=== PATIENT | female | born 1980 | race Caucasian/White ===

== ENCOUNTER 2016-08-24 12:29 | Emergency (ER) | payer MEDICARE ==
[~2016-08-24] VITALS: Ht 162.6 cm; Wt 92.1 kg
[2016-08-24] MEDS ORDERED: FAMO40TA3 PO (12:51)
[2016-08-24] MEDS ORDERED: CLOB05OI EXT (13:21)
[2016-08-24 13:29] VITALS: BP 127/82
== END 2016-08-24 13:36 | disposition home or self-care (01) ==
LOC: M ED 13:19
DX: L30.9 Dermatitis, unspecified (principal); Z76.0 Encounter for issue of repeat prescription; F17.200 Nicotine dependence, unspecified, uncomplicated; M54.9 Dorsalgia, unspecified; F41.9 Anxiety disorder, unspecified; Z86.14 Personal history of Methicillin resistant Staphylococcus aureus infection; Z79.899 Other long term (current) drug therapy; Z88.1 Allergy status to other antibiotic agents

== ENCOUNTER → 2016-09-10 | Outpatient (CLI) | payer MEDICAID ==
[~2016-09-10] MED LIST: CLOB05OI EXT; FAMO40TA3 PO
[2016-09-10 13:01] LABS: BASO % 0.7 % (0.0-1.0); EOS # 0.3 K/mm3 (0.0-0.50); EOS % 4.2 % (0.0-3.0); LYMPH # 2.9 K/mm3 (1.5-4.5); LYMPH % 34.3 % (24.0-44.0); MEAN CORPUSCULAR HEMOGLOBIN 32.2 pg (27.0-33.0); MEAN CORPUSCULAR HGB CONC 35.2 g/dl (32.0-36.5); MEAN CORPUSCULAR VOLUME 91.6 fl (80.0-96.0); MONO # 0.5 K/mm3 (0.0-0.8); MONO % 5.5 % (0.0-5.0); NEUTROPHILS # 4.4 K/mm3 (1.8-7.7); NEUTROPHILS % 53.9 % (36.0-66.0); RED CELL DISTRIBUTION WIDTH 12.7 % (11.5-14.5); WHITE BLOOD COUNT 8.2 K/mm3 (4.0-10.0)
[2016-09-10 13:20] LABS: ALBUMIN 3.9 GM/DL (3.2-5.2); ALKALINE PHOSPHATASE 92 U/L (45-117); ALT/SGPT 53 U/L (12-78); ANION GAP 9 MEQ/L (8-16); AST/SGOT 22 U/L (15-37); BILIRUBIN,TOTAL 0.3 MG/DL (0.2-1.0); BLOOD UREA NITROGEN 15 MG/DL (7-18); CARBON DIOXIDE LEVEL 27 MEQ/L (21-32); CHLORIDE LEVEL 107 MEQ/L (98-107); CHOLESTEROL LEVEL 240 MG/DL (<200); CREATININE FOR GFR 0.69 MG/DL (0.55-1.02); GLOMERULAR FILTRATION RATE > 60.0 (>60); GLUCOSE, FASTING 117 MG/DL (70-105); POTASSIUM SERUM 4.1 MEQ/L (3.5-5.1); SODIUM LEVEL 143 MEQ/L (136-145); TOTAL PROTEIN 6.9 GM/DL (6.4-8.2); TRIGLYCERIDES LEVEL 193 MG/DL (<150)
[2016-09-12 00:06] LABS: Lyme Disease IgG/IgM Antibodie <0.91 ISR (0.00-0.90); Lyme Disease IgM Ab Quantitati <0.80 index (0.00-0.79); SJOGREN'S ANTI SS-A <0.2 AI (0.0-0.9); SJOGREN'S ANTI SS-B <0.2 AI (0.0-0.9)
[2016-09-13 11:40] LABS: ALBUMIN 4.21 GM/DL (3.29-5.55); GAMMA GLOBULIN % 11.6 % (11.1-18.8)
== END ==
LOC: M LAB 11:28
PROVIDERS: ATTEND Physician Assistant Medical
DX: E78.2 Mixed hyperlipidemia (principal); E55.9 Vitamin D deficiency, unspecified; F41.1 Generalized anxiety disorder; M54.5 Low back pain

== ENCOUNTER 2016-11-03 16:07 | Emergency (ER) | payer MEDICARE, MEDICAID ==
[~2016-11-03] VITALS: Ht 162.6 cm; Wt 88.6 kg
[2016-11-03] MEDS ORDERED: LIPI20TA PO (16:15)
[2016-11-03] MEDS ORDERED: LEXA1TAB2 PO (16:15)
[2016-11-03] MEDS ORDERED: MOBI15TA PO (16:15)
[2016-11-03] MEDS ORDERED: VITA100067 PO (16:15)
[2016-11-03] MEDS ORDERED: ACET30TAB PO (17:21)
[2016-11-03 17:38] VITALS: BP 135/69
== END 2016-11-03 17:40 | disposition home or self-care (01) ==
LOC: M ED 16:07
DX: M25.50 Pain in unspecified joint (principal); M54.9 Dorsalgia, unspecified; F99 Mental disorder, not otherwise specified; F17.210 Nicotine dependence, cigarettes, uncomplicated; Z88.1 Allergy status to other antibiotic agents; Z88.2 Allergy status to sulfonamides; Z79.899 Other long term (current) drug therapy

== ENCOUNTER → 2016-11-25 | Outpatient (CLI) | payer MEDICARE, MEDICAID ==
[~2016-11-25] MED LIST changes: +ACET30TAB PO; +LEXA1TAB2 PO; +LIPI20TA PO; +MOBI15TA PO; +VITA100067 PO
[2016-11-25 12:02] LABS: MEAN CORPUSCULAR HEMOGLOBIN 32.1 pg (27.0-33.0); MEAN CORPUSCULAR VOLUME 94.1 fl (80.0-96.0); WHITE BLOOD COUNT 8.2 K/mm3 (4.0-10.0)
[2016-11-25 12:03] LABS: BASO # 0.1 K/mm3 (0.0-0.2); BASO % 0.7 % (0.0-1.0); EOS % 5.9 % (0.0-3.0); LYMPH % 32.6 % (24.0-44.0); MEAN CORPUSCULAR HGB CONC 34.2 g/dl (32.0-36.5); MONO % 4.6 % (0.0-5.0); NEUTROPHILS % 54.8 % (36.0-66.0); RED CELL DISTRIBUTION WIDTH 12.7 % (11.5-14.5)
[2016-11-25 12:04] LABS: EOS # 0.5 K/mm3 (0.0-0.50); LYMPH # 2.7 K/mm3 (1.5-4.5); MONO # 0.4 K/mm3 (0.0-0.8); NEUTROPHILS # 4.5 K/mm3 (1.8-7.7)
[2016-11-25 13:16] LABS: ALBUMIN 3.6 GM/DL (3.2-5.2); ALBUMIN/GLOBULIN RATIO 1.29 (1.00-1.93); ALKALINE PHOSPHATASE 93 U/L (45-117); ALT/SGPT 34 U/L (12-78); ANION GAP 8 MEQ/L (8-16); AST/SGOT 15 U/L (15-37); BILIRUBIN,TOTAL 0.5 MG/DL (0.2-1.0); BLOOD UREA NITROGEN 11 MG/DL (7-18); CALCIUM LEVEL 8.4 MG/DL (8.5-10.1); CARBON DIOXIDE LEVEL 29 MEQ/L (21-32); CHLORIDE LEVEL 107 MEQ/L (98-107); CHOLESTEROL LEVEL 156 MG/DL (<200); CREATININE FOR GFR 0.56 MG/DL (0.55-1.02); GLOMERULAR FILTRATION RATE > 60.0 (>60); GLUCOSE, FASTING 123 MG/DL (70-105); POTASSIUM SERUM 4.5 MEQ/L (3.5-5.1); SODIUM LEVEL 144 MEQ/L (136-145); TOTAL PROTEIN 6.4 GM/DL (6.4-8.2); TRIGLYCERIDES LEVEL 207 MG/DL (<150)
== END ==
LOC: M LAB 09:52
PROVIDERS: ATTEND Physician Assistant Medical
DX: E78.2 Mixed hyperlipidemia (principal); R73.9 Hyperglycemia, unspecified; E55.9 Vitamin D deficiency, unspecified

== ENCOUNTER → 2016-12-02 | Outpatient (CLI) | payer MEDICARE, MEDICAID ==
--- NOTE | 2016-12-02 15:02 | REP ---
Clinical: Bilateral pain . Technique: AP, lateral and sunrise views of the right and left knee. Findings: The osseous structures and joint spaces are intact and normal. There is no evidence for acute fracture or dislocation. No joint effusion is appreciated. Surrounding soft tissues are unremarkable. No subcutaneous emphysema or radiodense foreign body. Impression: Normal examination. No overt osteoarthritic degenerative changes are appreciated. Signed by Peter Ballesteros MD 12/02/2016 02:53 P
--- NOTE | 2016-12-02 15:04 | REP ---
Clinical: Bilateral hand pain. Arthritis. Technique: AP, lateral, bilateral oblique views of the right and left hand. Findings: No acute fracture dislocation. Skeletal structures, joint spaces, and surrounding soft tissues are normal for age bilaterally. No overt osteoarthritic degenerative changes are appreciated. Impression: Normal age appropriate bilateral hand radiographs. No overt osteoarthritic degenerative changes. Signed by Peter Ballesteros MD 12/02/2016 02:55 P
== END ==
LOC: M LAB 14:07
PROVIDERS: ATTEND Physician Assistant Medical
DX: M13.80 Other specified arthritis, unspecified site (principal)

== ENCOUNTER → 2017-01-16 | Outpatient (REF) | payer MEDICARE, MEDICAID | LOC: M SFHCLERA 13:30 | PROVIDERS: ATTEND Physician Assistant | DX: J02.9 Acute pharyngitis, unspecified (principal) ==

== ENCOUNTER 2017-02-15 20:11 | Emergency (ER) | payer MEDICARE, MEDICAID ==
[~2017-02-15] VITALS: Ht 162.6 cm; Wt 91.8 kg
[2017-02-15] MEDS ORDERED: BUSP15TA47 PO (20:22)
[2017-02-15] MEDS ORDERED: VALI5TAB PO (22:18)
[2017-02-15] MEDS ORDERED: IBUP80TA PO (22:18)
[2017-02-15] MEDS ORDERED: diazePAM 5 MG TAB PO ONE (22:30)
[2017-02-15] MEDS ORDERED: KETOROLAC 60 MG/2 ML VIAL (J1885) IM ONE (22:30)
[2017-02-15 22:41] VITALS: BP 126/68
== END 2017-02-15 22:45 | disposition home or self-care (01) ==
LOC: M ED 20:11
DX: S29.012A Strain of muscle and tendon of back wall of thorax, initial encounter (principal); S16.1XXA Strain of muscle, fascia and tendon at neck level, initial encounter; X58.XXXA Exposure to other specified factors, initial encounter; Y92.89 Other specified places as the place of occurrence of the external cause; Y93.89 Activity, other specified; Y99.9 Unspecified external cause status
CPT/HCPCS: 96372; 99283; J1885

== ENCOUNTER 2017-02-22 19:38 | Emergency (ER) | payer MEDICARE, MEDICAID ==
[~2017-02-22] VITALS: Ht 162.6 cm; Wt 93.0 kg
[~2017-02-22 19:38] MED LIST changes: +BUSP15TA47 PO; +IBUP80TA PO; +VALI5TAB PO
[2017-02-22] MEDS ORDERED: KETOROLAC 60 MG/2 ML VIAL (J1885) IM ONE (21:45)
[2017-02-22] MEDS ORDERED: ADJU7MIS XX (22:26)
[2017-02-22 22:43] VITALS: BP 12/72
--- NOTE | 2017-02-23 08:02 | REP ---
Right knee five views half : There is no fracture or dislocation. Mineralization and joint spaces are normal. There are no calcifications or foreign bodies. Impression: Negative right knee . Signed by Franklyn Bell MD 02/23/2017 07:53 A
== END 2017-02-22 22:45 | disposition home or self-care (01) ==
LOC: M ED 19:38
DX: S80.01XA Contusion of right knee, initial encounter (principal); W19.XXXA Unspecified fall, initial encounter; Y92.098 Other place in other non-institutional residence as the place of occurrence of the external cause; Y93.89 Activity, other specified; Y99.8 Other external cause status; F41.9 Anxiety disorder, unspecified; F17.200 Nicotine dependence, unspecified, uncomplicated; Z79.899 Other long term (current) drug therapy; Z88.2 Allergy status to sulfonamides; Z88.1 Allergy status to other antibiotic agents
CPT/HCPCS: 73564; 96372; 99283; J1885

== ENCOUNTER 2017-06-02 18:30 | Emergency (ER) | payer MEDICARE, MEDICAID ==
[2017-06-02] MEDS: AMOXICILLIN 500 MG CAP PO (20:08)
== END 2017-06-02 20:26 | disposition home or self-care (01) ==
LOC: M ED 18:30
DX: K04.7 Periapical abscess without sinus (principal); K21.9 Gastro-esophageal reflux disease without esophagitis; F17.200 Nicotine dependence, unspecified, uncomplicated; Z88.1 Allergy status to other antibiotic agents; Z88.2 Allergy status to sulfonamides
CPT/HCPCS: 99283

== ENCOUNTER → 2017-09-01 | Outpatient (REF) | payer MEDICARE, MEDICAID ==
[2017-09-01 13:38] LABS: BASO # 0.1 10^3/uL (0.0-0.2); BASO % 0.6 % (0.0-1.0); EOS # 0.6 10^3/uL (0.0-0.50); EOS % 6.4 % (0.0-3.0); HEMATOCRIT 40.1 % (36.0-47.0); HEMOGLOBIN 13.3 g/dl (12.0-15.5); IMMATURE GRANULOCYTE % 0.3 % (0-3.0); LYMPH # 2.7 10^3/uL (1.5-4.5); LYMPH % 31.1 % (24.0-44.0); MEAN CORPUSCULAR HEMOGLOBIN 31.1 pg (27.0-33.0); MEAN CORPUSCULAR HGB CONC 33.2 g/dl (32.0-36.5); MEAN CORPUSCULAR VOLUME 93.9 fl (80.0-96.0); MONO # 0.5 10^3/uL (0.0-0.8); MONO % 6.1 % (0.0-5.0); NEUTROPHILS # 4.9 10^3/uL (1.8-7.7); NEUTROPHILS % 55.5 % (36.0-66.0); PLATELET COUNT, AUTOMATED 184 10^3/uL (150-450); RED BLOOD COUNT 4.27 10^6/uL (4.00-5.40); RED CELL DISTRIBUTION WIDTH 12.6 % (11.5-14.5); WHITE BLOOD COUNT 8.8 10^3/uL (4.0-10.0)
[2017-09-01 14:06] LABS: ALBUMIN 3.7 GM/DL (3.2-5.2); ALBUMIN/GLOBULIN RATIO 1.09 (1.00-1.93); ALKALINE PHOSPHATASE 98 U/L (45-117); ALT/SGPT 68 U/L (12-78); ANION GAP 8 MEQ/L (8-16); AST/SGOT 23 U/L (7-37); BILIRUBIN,TOTAL 0.3 MG/DL (0.2-1.0); BLOOD UREA NITROGEN 10 MG/DL (7-18); CALCIUM LEVEL 8.8 MG/DL (8.5-10.1); CARBON DIOXIDE LEVEL 28 MEQ/L (21-32); CHLORIDE LEVEL 106 MEQ/L (98-107); CHOLESTEROL LEVEL 226 MG/DL (<200); CHOLESTEROL RISK RATIO 6.457 (<5); CPK CREATINE PHOSPHOKINASE 28 U/L (26-192); CREATININE FOR GFR 0.65 MG/DL (0.55-1.30); GLOMERULAR FILTRATION RATE > 60.0 (>60); GLUCOSE, FASTING 151 MG/DL (70-100); HDL CHOLESTEROL 35 MG/DL (>40); LDL CHOLESTEROL 143.6 MG/DL (<100); NON-HDL-C 191 MG/DL; POTASSIUM SERUM 4.4 MEQ/L (3.5-5.1); SODIUM LEVEL 142 MEQ/L (136-145); TOTAL PROTEIN 7.1 GM/DL (6.4-8.2); TRIGLYCERIDES LEVEL 237 MG/DL (<150)
[2017-09-01 14:10] LABS: ESTIMATED AVERAGE GLUCOSE 174 MG/DL (60-110); HEMOGLOBIN A1c 7.7 %
== END ==
LOC: M SFHCPLAZ 09:44
DX: K21.9 Gastro-esophageal reflux disease without esophagitis (principal); E78.00 Pure hypercholesterolemia, unspecified; E66.9 Obesity, unspecified; Z68.35 Body mass index [BMI] 35.0-35.9, adult
CPT/HCPCS: 82550

== ENCOUNTER → 2017-11-29 | Outpatient (CLI) | payer MEDICARE, MEDICAID ==
[2017-11-29 09:28] LABS: CREATININE FOR GFR 0.68 MG/DL (0.55-1.30); GLOMERULAR FILTRATION RATE > 60.0 (>60)
[2017-11-29 09:28] LABS: BLOOD UREA NITROGEN 12 MG/DL (7-18)
== END ==
LOC: M LAB 07:41
DX: Z01.818 Encounter for other preprocedural examination (principal); M54.5 Low back pain; Z86.39 Personal history of other endocrine, nutritional and metabolic disease
CPT/HCPCS: 82565

== ENCOUNTER 2017-11-30 18:17 | Emergency (ER) | payer MEDICARE, MEDICAID ==
[2017-11-30 19:17] LABS: BASO # 0.1 10^3/uL (0.0-0.2); BASO % 0.6 % (0.0-1.0); EOS # 0.3 10^3/uL (0.0-0.50); HEMATOCRIT 41.9 % (36.0-47.0); HEMOGLOBIN 14.3 g/dl (12.0-15.5); IMMATURE GRANULOCYTE % 0.3 % (0-3.0); LYMPH # 3.2 10^3/uL (1.5-4.5); MEAN CORPUSCULAR HGB CONC 34.1 g/dl (32.0-36.5); MEAN CORPUSCULAR VOLUME 90.7 fl (80.0-96.0); MONO # 0.6 10^3/uL (0.0-0.8); MONO % 6.5 % (0.0-5.0); NEUTROPHILS # 4.8 10^3/uL (1.8-7.7); NEUTROPHILS % 53.6 % (36.0-66.0); PLATELET COUNT, AUTOMATED 203 10^3/uL (150-450); RED BLOOD COUNT 4.62 10^6/uL (4.00-5.40); RED CELL DISTRIBUTION WIDTH 11.9 % (11.5-14.5); WHITE BLOOD COUNT 8.9 10^3/uL (4.0-10.0)
[2017-11-30 19:22] LABS: KETONE, URINE AUTO RFX NEGATIVE (NEGATIVE); LEUKOCYTE ESTERASE UR AUTO RFX NEGATIVE (NEGATIVE); MUCUS, URINE RFX SMALL (NEGATIVE); NITRITE, URINE AUTO RFX NEGATIVE (NEGATIVE); RBC, URINE AUTO RFX 2 /HPF (0-3); SPECIFIC GRAVITY UR AUTO RFX 1.027 (1.002-1.035); SQUAM EPITHELIAL CELL UR AURFX 3 /HPF (0-6); WBC, URINE AUTO RFX 2 /HPF (0-3)
[2017-11-30] MEDS: METOCLOPRAMIDE INJ 10MG/2ML VIAL (J2765) IV ×2 (19:34)
[2017-11-30] MEDS: NS 1,000 ML IV ×2 (19:34)
[2017-11-30 19:35] LABS: ALBUMIN/GLOBULIN RATIO 1.18 (1.00-1.93); ALKALINE PHOSPHATASE 112 U/L (45-117); ALT/SGPT 52 U/L (12-78); AMYLASE 60 U/L (25-115); ANION GAP 6 MEQ/L (8-16); AST/SGOT 22 U/L (7-37); BILIRUBIN,DIRECT 0.1 MG/DL (0.0-0.2); BILIRUBIN,TOTAL 0.4 MG/DL (0.2-1.0); BLOOD UREA NITROGEN 13 MG/DL (7-18); CARBON DIOXIDE LEVEL 28 MEQ/L (21-32); CHLORIDE LEVEL 108 MEQ/L (98-107); CREATININE FOR GFR 0.72 MG/DL (0.55-1.30); GLOMERULAR FILTRATION RATE > 60.0 (>60); GLUCOSE, FASTING 116 MG/DL (70-100); LIPASE 260 U/L (73-393); SODIUM LEVEL 142 MEQ/L (136-145); TOTAL PROTEIN 7.4 GM/DL (6.4-8.2)
[2017-11-30 19:51] LABS: ESTIMATED AVERAGE GLUCOSE 154 MG/DL (60-110)
[2017-11-30] MEDS ORDERED: ISOVUE-370 76% 100ML VIAL (Q9967) As Ordered ×2 (21:41)
[2017-11-30] MEDS: ONDANSETRON 4MG/2ML VIAL (J2405) IV ×2 (22:25)
[2017-11-30] MEDS: DICYCLOMINE 10 MG CAP PO ×2 (23:29)
[2017-11-30] MEDS: ONDANSETRON 4 MG ORAL DISINTEGRATING TAB (Q0162 PER 1MG) PO ×2 (23:30)
== END 2017-11-30 23:40 | disposition home or self-care (01) ==
LOC: M ED 18:17
DX: R11.2 Nausea with vomiting, unspecified (principal); R19.7 Diarrhea, unspecified; E11.9 Type 2 diabetes mellitus without complications; K21.9 Gastro-esophageal reflux disease without esophagitis; M54.9 Dorsalgia, unspecified; F41.9 Anxiety disorder, unspecified; N83.299 Other ovarian cyst, unspecified side; Z87.891 Personal history of nicotine dependence; Z79.899 Other long term (current) drug therapy; Z88.1 Allergy status to other antibiotic agents; Z88.2 Allergy status to sulfonamides
CPT/HCPCS: J2405

== ENCOUNTER → 2017-12-02 | Outpatient (CLI) | payer MEDICARE, MEDICAID ==
[~2017-12-02] MED LIST changes: -ACET30TAB PO; -BUSP15TA47 PO; -CLOB05OI EXT; -FAMO40TA3 PO; -IBUP80TA PO; -LEXA1TAB2 PO; -LIPI20TA PO; -MOBI15TA PO; +PROHANCE 279.3MG/ML 15ML VIAL (A9576) As Ordered; +PROHANCE 279.3MG/ML 5ML VIAL (A9576) As Ordered; -VALI5TAB PO; -VITA100067 PO
== END ==
LOC: M RAD 17:15
DX: M54.5 Low back pain (principal); Z98.1 Arthrodesis status
CPT/HCPCS: A9576

== ENCOUNTER → 2017-12-23 | Outpatient (REF) | payer MEDICARE, MEDICAID ==
[2017-12-23 12:02] LABS: BASO % 0.4 % (0.0-1.0); EOS # 0.4 10^3/uL (0.0-0.50); EOS % 5.1 % (0.0-3.0); HEMATOCRIT 39.8 % (36.0-47.0); HEMOGLOBIN 13.3 g/dl (12.0-15.5); IMMATURE GRANULOCYTE % 0.3 % (0-3.0); LYMPH # 2.4 10^3/uL (1.5-4.5); LYMPH % 31.6 % (24.0-44.0); MEAN CORPUSCULAR HEMOGLOBIN 30.7 pg (27.0-33.0); MEAN CORPUSCULAR HGB CONC 33.4 g/dl (32.0-36.5); MEAN CORPUSCULAR VOLUME 91.9 fl (80.0-96.0); MONO # 0.5 10^3/uL (0.0-0.8); NEUTROPHILS # 4.3 10^3/uL (1.8-7.7); NEUTROPHILS % 55.6 % (36.0-66.0); PLATELET COUNT, AUTOMATED 207 10^3/uL (150-450); RED BLOOD COUNT 4.33 10^6/uL (4.00-5.40); RED CELL DISTRIBUTION WIDTH 12.2 % (11.5-14.5); WHITE BLOOD COUNT 7.7 10^3/uL (4.0-10.0)
[2017-12-23 12:14] LABS: INR 0.93; PROTHROMBIN TIME 12.6 SECONDS (12.1-14.4)
[2017-12-23 12:15] LABS: PARTIAL THROMBOPLASTIN TIME 29.7 SECONDS (25.4-37.6)
[2017-12-23 12:38] LABS: ESTIMATED AVERAGE GLUCOSE 163 MG/DL (60-110); HEMOGLOBIN A1c 7.3 %
[2017-12-23 13:10] LABS: MALB URINE SIEMENS 12.1 MG/L; MAU/CREAT RATIO 5.8 MCG/MG (0.0-30.0)
== END ==
LOC: M SFHCPLAZ 09:27
DX: K06.8 Other specified disorders of gingiva and edentulous alveolar ridge (principal); E11.9 Type 2 diabetes mellitus without complications; F41.9 Anxiety disorder, unspecified; R76.8 Other specified abnormal immunological findings in serum; R59.0 Localized enlarged lymph nodes; Z23 Encounter for immunization
CPT/HCPCS: 83036

== ENCOUNTER → 2018-02-03 | Outpatient (CLI) | payer MEDICARE, MEDICAID | LOC: M RAD 12:07 | DX: M79.641 Pain in right hand (principal) | CPT/HCPCS: 73130 ==

== ENCOUNTER → 2018-03-17 | Outpatient (REF) | payer MEDICARE, MEDICAID ==
[~2018-03-17] MED LIST changes: +ACET30TAB PO; +ADJU7MIS XX; +AMOX500C PO; +BENT10CA PO; +BUSP15TA47 PO; +CLOB05OI EXT; +FAMO40TA3 PO; +FLUO10TA2; +FLUTISP; +IBUP80TA PO; +LEXA1TAB2 PO; +LIPI20TA PO; +MOBI15TA PO; -PROHANCE 279.3MG/ML 15ML VIAL (A9576) As Ordered; -PROHANCE 279.3MG/ML 5ML VIAL (A9576) As Ordered; +VALI5TAB PO; +VICT18IN; +VITA100067 PO; +ZOFR4TAB14 SL
[2018-03-17 14:12] LABS: C REACTIVE PROTEIN QUANTITATIV 0.36 MG/DL (0.00-0.30); RHEUMATOID FACTOR QUANT < 10.0 IU/ML (<15.0)
[2018-03-17 14:58] LABS: CREATININE, URINE 91.4 MG/DL; MALB URINE SIEMENS 11.1 MG/L; MAU/CREAT RATIO 12.1 MCG/MG (0.0-30.0)
[2018-03-17 16:04] LABS: HEMOGLOBIN A1c 7.1 %
[2018-03-20 00:20] LABS: ANA (HEP2) Positive (.); CYCLIC CITRULLINATED PEPTIDE 19 units (0-19); SSA SJOGRENS A <0.2 AI (0.0-0.9); SSB SJOGRENS B <0.2 AI (0.0-0.9)
== END ==
LOC: M SFHCPLAZ 09:21
PROVIDERS: ATTEND Physician Assistant
DX: R76.8 Other specified abnormal immunological findings in serum (principal); E11.9 Type 2 diabetes mellitus without complications

== ENCOUNTER 2018-04-11 17:48 | Emergency (ER) | payer MEDICARE, MEDICAID ==
[~2018-04-11] VITALS: Ht 162.6 cm; Wt 95.5 kg
[2018-04-11] MEDS ORDERED: OMEP40CA2 (17:56)
[2018-04-11] MEDS ORDERED: JARD1TAB (17:56)
[2018-04-11] MEDS ORDERED: LANTINJ4 (17:56)
[2018-04-11] MEDS ORDERED: IBUPROFEN 800 MG TAB PO ONE (20:30)
[2018-04-11 20:54] VITALS: BP 117/74
== END 2018-04-11 21:13 | disposition home or self-care (01) ==
LOC: M ED 17:48
DX: T23.201A Burn of second degree of right hand, unspecified site, initial encounter (principal); X15.0XXA Contact with hot stove (kitchen), initial encounter; Y92.090 Kitchen in other non-institutional residence as the place of occurrence of the external cause; E11.9 Type 2 diabetes mellitus without complications; Z88.1 Allergy status to other antibiotic agents; Z88.2 Allergy status to sulfonamides; Z79.899 Other long term (current) drug therapy; Z79.4 Long term (current) use of insulin

== ENCOUNTER → 2018-04-18 | Outpatient (REF) | payer MEDICARE ==
[~2018-04-18] MED LIST changes: +JARD1TAB; +LANTINJ4; +OMEP40CA2
== END ==
LOC: M SFHCPLAZ 09:55
PROVIDERS: ATTEND Physician Assistant
DX: L98.9 Disorder of the skin and subcutaneous tissue, unspecified (principal); J02.9 Acute pharyngitis, unspecified

== ENCOUNTER → 2018-08-01 | Outpatient (REF) | payer MEDICARE, MEDICAID ==
[~2018-08-01] MED LIST changes: +ACET-716 PO; -ACET30TAB PO
[2018-08-01 13:22] LABS: HEMOGLOBIN A1c 7.4 %
== END ==
LOC: M SFHCPLAZ 08:17
PROVIDERS: ATTEND Family Medicine
DX: E11.9 Type 2 diabetes mellitus without complications (principal)
CPT/HCPCS: 83036; 92250; G0463

== ENCOUNTER 2018-10-28 21:29 | Emergency (ER) | payer MEDICARE, MEDICAID ==
[~2018-10-28] VITALS: Ht 157.5 cm; Wt 95.5 kg
[2018-10-28] MEDS ORDERED: NAPROXEN 250 MG TAB PO ONE (22:15)
[2018-10-28] MEDS ORDERED: NAPR-837 PO (23:21)
[2018-10-28 23:39] VITALS: BP 114/64
== END 2018-10-28 23:42 | disposition home or self-care (01) ==
LOC: M ED 21:29
DX: M79.675 Pain in left toe(s) (principal); E11.9 Type 2 diabetes mellitus without complications; Z79.899 Other long term (current) drug therapy; Z79.4 Long term (current) use of insulin; Z88.1 Allergy status to other antibiotic agents; Z88.2 Allergy status to sulfonamides

== ENCOUNTER → 2018-11-17 | Outpatient (CLI) | payer MEDICARE, MEDICAID ==
[~2018-11-17] MED LIST changes: +NAPR-837 PO
--- NOTE | 2018-11-17 15:24 | REP ---
Right foot four views : There is no fracture or dislocation. Mineralization and joint spaces are normal. There are no calcifications or foreign bodies. Impression: Negative right foot were of the with the the . Electronically Signed by Franklyn Bell MD 11/17/2018 03:15 P
== END ==
LOC: M WUC 13:10
PROVIDERS: ATTEND Family Medicine
DX: M79.671 Pain in right foot (principal)

== ENCOUNTER 2019-01-14 12:17 | Emergency (ER) | payer MEDICARE, MEDICAID ==
[~2019-01-14] VITALS: Ht 162.6 cm; Wt 93.1 kg
[~2019-01-14 12:17] MED LIST changes: -OMEP40CA2; +OMEP40CA97
[2019-01-14] MEDS ORDERED: ADENOSINE 6MG/2ML INJECTION (J0153) As Ordered ONE (12:27)
[2019-01-14 12:39] LABS: BASO # 0.1 10^3/uL (0.0-0.2); BASO % 0.6 % (0.0-1.0); EOS # 0.4 10^3/uL (0.0-0.5); EOS % 3.2 % (0.0-3.0); HEMATOCRIT 45.5 % (36.0-47.0); HEMOGLOBIN 15.4 g/dl (12.0-15.5); LYMPH # 4.3 10^3/uL (1.5-5.0); LYMPH % 34.9 % (24.0-44.0); MEAN CORPUSCULAR HEMOGLOBIN 30.7 pg (27.0-33.0); MEAN CORPUSCULAR HGB CONC 33.8 g/dl (32.0-36.5); MEAN CORPUSCULAR VOLUME 90.8 fl (80.0-96.0); MONO % 7.7 % (0.0-5.0); NEUTROPHILS # 6.6 10^3/uL (1.5-8.5); NEUTROPHILS % 53.3 % (36.0-66.0); PLATELET COUNT, AUTOMATED 242 10^3/uL (150-450); RED BLOOD COUNT 5.01 10^6/uL (4.00-5.40); WHITE BLOOD COUNT 12.4 10^3/uL (4.0-10.0)
[2019-01-14] MEDS ORDERED: ADENOSINE 6MG/2ML INJECTION (J0153) IV STA ×3 (12:49)
[2019-01-14 12:55] LABS: BLOOD UREA NITROGEN 15 MG/DL (7-18); CALCIUM LEVEL 9.2 MG/DL (8.5-10.1); CARBON DIOXIDE LEVEL 22 MEQ/L (21-32); CHLORIDE LEVEL 110 MEQ/L (98-107); CK-MB VALUE MASS < 1.0 NG/ML (<3.6); CPK CREATINE PHOSPHOKINASE 43 U/L (26-192); CREATININE FOR GFR 0.91 MG/DL (0.55-1.30); GLOMERULAR FILTRATION RATE > 60.0 (>58); GLUCOSE, FASTING 191 MG/DL (70-100); MB/CK RELATIVE INDEX 2.33 (< OR =4); POTASSIUM SERUM 3.7 MEQ/L (3.5-5.1); SODIUM LEVEL 141 MEQ/L (136-145); TROPONIN I < 0.02 NG/ML (< 0.10)
--- NOTE | 2019-01-14 13:50 | REP ---
CHEST, SINGLE VIEW: Single view of the chest is performed. There is mild bibasilar fibroatelectatic change with no definite acute infiltrate. Heart is normal in size. Mediastinal silhouette is unremarkable. Visualized osseous structures are unremarkable. IMPRESSION: Mild bibasilar fibroatelectatic change. Electronically Signed by Franklyn Dickinson MD 01/14/2019 02:40 P
[2019-01-14] MEDS ORDERED: ATENOLOL 25 MG TAB PO ONE (14:15)
[2019-01-14 14:23] VITALS: BP 111/77
[2019-01-14 14:25] VITALS: BP 111/77
--- NOTE | 2019-01-15 20:02 | ECGEPIP ---
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
--- NOTE | 2019-01-15 20:03 | ECGEPIP ---
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
== END 2019-01-14 14:28 | disposition home or self-care (01) ==
LOC: M ED 12:17
DX: I47.1 Supraventricular tachycardia (principal); K21.9 Gastro-esophageal reflux disease without esophagitis; F17.218 Nicotine dependence, cigarettes, with other nicotine-induced disorders; Z88.2 Allergy status to sulfonamides; Z88.1 Allergy status to other antibiotic agents
CPT/HCPCS: 71045; 80048; 82550; 82553; 84484; 85025; 93005; 93041; 94760; 96374; 96376; 99285; J0153

== ENCOUNTER → 2019-01-19 | Outpatient (REF) | payer MEDICARE, MEDICAID ==
[2019-01-19 10:51] LABS: HEMOGLOBIN A1c 7.4 %
== END ==
LOC: M SFHCPLAZ 08:08
PROVIDERS: ATTEND Family Medicine
DX: E11.9 Type 2 diabetes mellitus without complications (principal)
CPT/HCPCS: 36415; 83036; 90682; G0008; G0463

== ENCOUNTER → 2019-03-01 | Outpatient (CLI) | payer MEDICARE, MEDICAID ==
--- NOTE | 2019-03-16 14:43 | REPMRS ---
Patient History The patient states she has not had a clinical breast exam in over a year. Family history of breast cancer at age 50 or over in maternal grandmother, breast cancer at age 50 or over in paternal grandmother. 3D TOMOSYNTHESIS WAS PERFORMED. [facility] for [facility] 18.7%. Digital Woman Screen Mammo: March 01, 2019 - Exam #: [id number] Bilateral CC and MLO view(s) were taken. Technologist: Sadaf Rodríguez, Technologist FINDINGS: There are scattered fibroglandular densities. There has been no change in the appearance of the mammogram from the prior studies. There is a mild amount of residual fibroglandular tissue which is fairly symmetric. There is no interval development of dominant mass, architectural distortion, or clustered microcalcification suggestive of malignancy. Assessment: BI-RADS/ACR category 1 mammogram. Negative Mammogram. Recommendation Routine screening mammogram in 1 year (for women over age 40). This mammogram was interpreted with the aid of an FDA-approved computer-aided dectection system. Electronically Signed By: Franklyn Dickinson MD 03/16/19 [id number]
== END ==
LOC: M WHC 07:41
PROVIDERS: ATTEND Family Medicine
DX: Z12.31 Encounter for screening mammogram for malignant neoplasm of breast (principal); Z80.3 Family history of malignant neoplasm of breast

== ENCOUNTER → 2019-05-12 | Outpatient (CLI) | payer MEDICARE, MEDICAID ==
--- NOTE | 2019-05-12 11:08 | REP ---
PA and lateral chest: Comparison is the portable chest dated 01/14/2019. The lung muniz are clear. The cardiac size is normal. The tiffany, mediastinum, and skeletal structures are unremarkable. Impression: Negative PA and lateral chest. Electronically Signed by Franklyn Bell MD 05/12/2019 10:59 A
== END ==
LOC: M LRY 10:22
PROVIDERS: ATTEND Nurse Practitioner Family
DX: R06.2 Wheezing (principal)
CPT/HCPCS: 71046; 87804; 87880; G0463

== ENCOUNTER → 2019-05-12 | Outpatient (REF) | payer MEDICARE, MEDICAID | LOC: M SFHCLERA 10:13 | PROVIDERS: ATTEND Nurse Practitioner Family | DX: R53.81 Other malaise (principal) ==

== ENCOUNTER → 2019-07-09 | Outpatient (CLI) | payer MEDICARE, MEDICAID | LOC: M LABSMTC 10:14 | PROVIDERS: ATTEND Family Medicine | DX: Z11.59 Encounter for screening for other viral diseases (principal); Z20.828 Contact with and (suspected) exposure to other viral communicable diseases ==

== ENCOUNTER 2019-07-11 14:19 | Emergency (ER) | payer MEDICARE, MEDICAID ==
[~2019-07-11] VITALS: Ht 162.6 cm; Wt 92.0 kg
[2019-07-11] MEDS ORDERED: CALCCHW19 PO (14:31)
[2019-07-11] MEDS ORDERED: VITA50005 PO (14:31)
[2019-07-11] MEDS ORDERED: CENTCHW4 PO (14:31)
[2019-07-11] MEDS ORDERED: DICL1GEL3 TOP (14:31)
[2019-07-11] MEDS ORDERED: B-122500 PO (14:31)
[2019-07-11] MEDS ORDERED: ASPIRIN 81 MG CHEW TABLET PO ONE (15:00)
[2019-07-11 15:13] LABS: BASO # 0.1 10^3/uL (0.0-0.2); BASO % 0.6 % (0.0-1.0); EOS # 0.2 10^3/uL (0.0-0.5); EOS % 2.7 % (0.0-3.0); HEMATOCRIT 41.5 % (36.0-47.0); HEMOGLOBIN 14.6 g/dl (12.0-15.5); LYMPH # 2.6 10^3/uL (1.5-5.0); MEAN CORPUSCULAR HEMOGLOBIN 31.9 pg (27.0-33.0); MEAN CORPUSCULAR HGB CONC 35.2 g/dl (32.0-36.5); MEAN CORPUSCULAR VOLUME 90.8 fl (80.0-96.0); MONO # 0.5 10^3/uL (0.0-0.8); MONO % 6.1 % (0.0-5.0); NEUTROPHILS # 4.7 10^3/uL (1.5-8.5); NEUTROPHILS % 58.2 % (36.0-66.0); PLATELET COUNT, AUTOMATED 181 10^3/uL (150-450); RED BLOOD COUNT 4.57 10^6/uL (4.00-5.40); WHITE BLOOD COUNT 8.1 10^3/uL (4.0-10.0)
[2019-07-11 15:23] LABS: INR 1.02; PROTHROMBIN TIME 13.1 SECONDS (11.8-14.0)
[2019-07-11 15:24] LABS: PARTIAL THROMBOPLASTIN TIME 26.2 SECONDS (25.0-38.4)
[2019-07-11 15:45] LABS: ALBUMIN 3.6 GM/DL (3.2-5.2); ALT/SGPT 80 U/L (12-78); BILIRUBIN,DIRECT < 0.1 MG/DL (0.0-0.2); BILIRUBIN,TOTAL 0.3 MG/DL (0.2-1.0); BLOOD UREA NITROGEN 10 MG/DL (7-18); CALCIUM LEVEL 9.1 MG/DL (8.5-10.1); CARBON DIOXIDE LEVEL 27 MEQ/L (21-32); CHLORIDE LEVEL 104 MEQ/L (98-107); CK-MB VALUE MASS < 1.0 NG/ML (<3.6); CPK CREATINE PHOSPHOKINASE 26 U/L (26-192); FREE T4 1.15 NG/DL (0.76-1.46); GLOMERULAR FILTRATION RATE > 60.0 (>58); GLUCOSE, FASTING 171 MG/DL (70-100); LIPASE 122 U/L (73-393); MAGNESIUM LEVEL 1.4 MG/DL (1.8-2.4); MB/CK RELATIVE INDEX 3.85 (< OR =4); PHOSPHORUS LEVEL 3.7 MG/DL (2.5-4.9); SODIUM LEVEL 140 MEQ/L (136-145); TOTAL PROTEIN 7.1 GM/DL (6.4-8.2); TROPONIN I < 0.02 NG/ML (< 0.10)
[2019-07-11] MEDS ORDERED: ISOVUE-370 76% 100ML VIAL As Ordered ONE (15:52)
[2019-07-11] MEDS ORDERED: MAGNESIUM OXIDE 400 MG TAB (MAG-OX) PO ONE (16:00)
--- NOTE | 2019-07-11 16:15 | REP ---
REASON: Chest pain. COMPARISON: 05/12/2019 There is a minimal lingular opacity silhouetting out a tiny portion of the left cardiac apex. The lung muniz are otherwise clear and unchanged. The pleural angles are sharp. The heart is not enlarged. The osseous structures are within normal limits. IMPRESSION: Likely minimal lingular subsegmental atelectasis. Electronically Signed by Brad Gonzalez DO 07/11/2019 04:24 P
--- NOTE | 2019-07-11 17:04 | REP ---
REASON FOR EXAM: Chest pain. There are no priors for comparison. CONTRAST: 100 mL Isovue-370. There is excellent visualization of the pulmonary arterial vasculature. There are no focal filling defects present that would be considered consistent with pulmonary emboli. The thoracic aorta is within normal limits. There is no mediastinal or hilar adenopathy. There are no pleural or pericardial effusions. The imaged upper abdomen and imaged osseous structures are within normal limits. Evaluation of the lung muniz shows multiple pulmonary nodules. In the right lung apical region, there is a lateral pleural-based 4 mm sized nodule. In the posterior segment of the right upper lobe inferiorly and abutting the major fissure, there is a 5 mm sized nodule. In the medial basal segment of the right lower lobe, there is a 4 mm sized nodule. In the left lower lobe posterior basal segment, there is a 4 mm sized nodule. In the apical posterior segment of the left upper lobe abutting the apex of the major fissure, there is a 4 mm sized nodule. In the apical posterior segment of the left upper lobe superior to the aforementioned, there is a pleural-based 5 mm sized nodule. IMPRESSION: 1. There is no evidence of a pulmonary embolism. 2. There are multiple pulmonary nodules, as described above. According to the revised Fleischner Society criteria, these nodules, for the most part, represent category 3 lesions, for which a [address] is recommended. Electronically Signed by Brad Gonzalez DO 07/12/2019 10:49 A
[2019-07-11 20:54] LABS: CK-MB VALUE MASS < 1.0 NG/ML (<3.6); CPK CREATINE PHOSPHOKINASE 23 U/L (26-192); MB/CK RELATIVE INDEX 4.35 (< OR =4); TROPONIN I < 0.02 NG/ML (< 0.10)
[2019-07-11 21:40] VITALS: BP 115/63
--- NOTE | 2019-07-12 01:10 | ECGEPIP ---
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
--- NOTE | 2019-07-12 01:20 | ECGEPIP ---
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
--- NOTE | 2019-07-13 13:30 | ED PDOC ---
Post-Departure Follow-Up cta chest faxed to dr guadarrama for fu Holland Moody MD Jul 13, 2019 13:30
== END 2019-07-11 21:57 | disposition home or self-care (01) ==
LOC: M ED 14:19
DX: R07.89 Other chest pain (principal); R91.8 Other nonspecific abnormal finding of lung field; R05 Cough; R07.0 Pain in throat; F17.218 Nicotine dependence, cigarettes, with other nicotine-induced disorders; K21.9 Gastro-esophageal reflux disease without esophagitis; E11.9 Type 2 diabetes mellitus without complications; Z88.2 Allergy status to sulfonamides; Z88.1 Allergy status to other antibiotic agents; Z88.8 Allergy status to other drugs, medicaments and biological substances
CPT/HCPCS: 36415; 71046; 71275; 80048; 80076; 82550; 82553; 83690; 83735; 84100; 84439; 84443; 84484; 85025; 85610; 85730; 87880; 93005; 93041; 94760; 99285; Q9967

== ENCOUNTER → 2019-07-13 | Outpatient (REF) | payer MEDICARE, MEDICAID ==
[~2019-07-13] MED LIST changes: +B-122500 PO; +CALCCHW19 PO; +CENTCHW4 PO; +DICL1GEL3 TOP; +VITA50005 PO
[2019-07-13 14:18] LABS: ALBUMIN 3.7 GM/DL (3.2-5.2); ALT/SGPT 72 U/L (12-78); BILIRUBIN,DIRECT < 0.1 MG/DL (0.0-0.2); BILIRUBIN,TOTAL 0.3 MG/DL (0.2-1.0)
== END ==
LOC: M SFHCPLAZ 08:57
PROVIDERS: ATTEND Family Medicine
DX: R79.89 Other specified abnormal findings of blood chemistry (principal)
CPT/HCPCS: 80076; G0463

== ENCOUNTER 2019-08-25 07:31 | Emergency (ER) | payer MEDICARE, MEDICAID ==
[~2019-08-25] VITALS: Ht 162.6 cm; Wt 87.3 kg
[~2019-08-25 07:31] MED LIST changes: -LANTINJ4; +LANTINJ4 SQ
[2019-08-25 09:11] VITALS: BP 109/71
--- NOTE | 2019-08-27 10:08 | REP ---
FOOT: REASON FOR EXAM: Palpable mass. Preliminary report given by Dr. Ballesteros. FINDINGS: The joint spaces are symmetric and relatively well maintained. There is no evidence of acute fracture or destructive osseous lesion. IMPRESSION: Negative. If a soft tissue mass is of clinical concern, then an MRI is recommended. Electronically Signed by Brad Gonzalez DO 08/27/2019 10:56 A
== END 2019-08-25 09:19 | disposition home or self-care (01) ==
LOC: M ED 07:31
DX: G57.62 Lesion of plantar nerve, left lower limb (principal); Z88.1 Allergy status to other antibiotic agents; Z88.2 Allergy status to sulfonamides; Z88.8 Allergy status to other drugs, medicaments and biological substances; F17.200 Nicotine dependence, unspecified, uncomplicated; K21.9 Gastro-esophageal reflux disease without esophagitis; E11.9 Type 2 diabetes mellitus without complications; F41.9 Anxiety disorder, unspecified; Z79.4 Long term (current) use of insulin; Z79.899 Other long term (current) drug therapy

== ENCOUNTER → 2019-10-05 | Outpatient (REF) | payer MEDICARE, MEDICAID ==
[2019-10-05 10:56] LABS: HEMATOCRIT 44.2 % (36.0-47.0); HEMOGLOBIN 14.8 g/dl (12.0-15.5); MEAN CORPUSCULAR HEMOGLOBIN 31.8 pg (27.0-33.0); MEAN CORPUSCULAR HGB CONC 33.5 g/dl (32.0-36.5); MEAN CORPUSCULAR VOLUME 94.8 fl (80.0-96.0); PLATELET COUNT, AUTOMATED 180 10^3/uL (150-450); RED BLOOD COUNT 4.66 10^6/uL (4.00-5.40); WHITE BLOOD COUNT 8.3 10^3/uL (4.0-10.0)
[2019-10-05 11:10] LABS: ALBUMIN 3.8 GM/DL (3.2-5.2); ALT/SGPT 35 U/L (12-78); BILIRUBIN,TOTAL 0.6 MG/DL (0.2-1.0); BLOOD UREA NITROGEN 11 MG/DL (7-18); CALCIUM LEVEL 8.8 MG/DL (8.5-10.1); CARBON DIOXIDE LEVEL 28 MEQ/L (21-32); CHLORIDE LEVEL 108 MEQ/L (98-107); GLOMERULAR FILTRATION RATE > 60.0 (>58); GLUCOSE, FASTING 144 MG/DL (70-100); POTASSIUM SERUM 4.2 MEQ/L (3.5-5.1); SODIUM LEVEL 144 MEQ/L (136-145); TOTAL PROTEIN 6.9 GM/DL (6.4-8.2)
[2019-10-05 11:12] LABS: TOTAL 25(OH) VITAMIN D 41.8 NG/ML (30.0-100.0)
[2019-10-05 11:23] LABS: HEMOGLOBIN A1c 6.6 %
[2019-10-05 11:35] LABS: MALB URINE SIEMENS 10.9 MG/L
== END ==
LOC: M SFHCPLAZ 09:12
PROVIDERS: ATTEND Family Medicine
DX: R53.83 Other fatigue (principal); E11.9 Type 2 diabetes mellitus without complications; E78.00 Pure hypercholesterolemia, unspecified; E55.9 Vitamin D deficiency, unspecified

== ENCOUNTER → 2019-11-07 | Outpatient (CLI) | payer MEDICARE, MEDICAID ==
[~2019-11-07] MED LIST changes: +CYCL7.5T32 PO; +LIDO5DIS41 TOP
--- NOTE | 2019-12-03 07:11 | SLEEPCENT ---
DATE: 11/07/2019 ORDERED BY: Stephen Lynn Nocturnal polysomnography was performed for evaluation of sleep physiology in this patient with complaints of excessive somnolence and snoring, morning headaches, and nonrestorative sleep. There was 6 hours and 56 minutes of data reviewed. There was 357.5 minutes of sleep identified. Sleep latency was normal at 19 minutes. REM latency was normal at 100 minutes. Sleep architecture was good with three REM cycles. Overall sleep efficiency was 87.1%. The patient's electrocardiogram showed a sinus rhythm with an average heart rate of 70 beats per minute. EEG showed normal waveforms for wake and sleep. There were only four respiratory events identified of 10 seconds in duration or greater for an apnea-hypopnea index well within normal limits. at 0.7. Some snoring was noted; however, respiratory related arousals occurred only 1.5 times per hour. There were no oxygen desaturations of significance, and the leg leads were calm. IMPRESSION: Normal nocturnal polysomnography with snoring. [facility]
== END ==
LOC: M SLEEP 20:00
PROVIDERS: ATTEND Physician Assistant
DX: R40.0 Somnolence (principal)

== ENCOUNTER → 2019-12-04 | Outpatient (CLI) | payer MEDICARE, MEDICAID ==
--- NOTE | 2019-12-20 08:44 | REP ---
CHEST X-RAY: CLINICAL: Morbid obesity. TECHNIQUE: PA and lateral FINDINGS: Mediastinum and cardiac silhouette are normal. Lung muniz are clear. No consolidation, effusion or pneumothorax. Skeletal structures are intact. IMPRESSION: Normal chest x-ray. No acute cardiopulmonary process or focal consolidation. MTDD
== END ==
LOC: M WUC 12:57
PROVIDERS: ATTEND Registered Nurse
DX: E66.01 Morbid (severe) obesity due to excess calories (principal)

== ENCOUNTER 2020-01-03 23:18 | Emergency (ER) | payer MEDICARE, MEDICAID ==
[~2020-01-03] VITALS: Ht 162.6 cm; Wt 85.9 kg
[~2020-01-03 23:18] MED LIST changes: -CYCL7.5T32 PO; -LIDO5DIS41 TOP
[2020-01-04] MEDS ORDERED: LIDOCAINE 5% (LIDODERM) PATCH TD ONE (01:30)
[2020-01-04] MEDS ORDERED: CYCLOBENZAPRINE 10MG TABLET PO ONE (01:30)
[2020-01-04] MEDS ORDERED: ACETAMINOPHEN 500 MG TAB PO ONE (01:30)
[2020-01-04] MEDS ORDERED: KETOROLAC 30 MG/ML 1ML VIAL IM ONE (01:30)
[2020-01-04] MEDS ORDERED: CYCL7.5T32 PO (02:03)
[2020-01-04] MEDS ORDERED: LIDO5DIS41 TOP (02:03)
[2020-01-04 02:39] VITALS: BP 151/78
[2020-01-04] MEDS ORDERED: **NOTE PATIENT COMMENT** MISC XX SCH (21:00)
== END 2020-01-04 02:39 | disposition home or self-care (01) ==
LOC: M ED 23:18
DX: S16.1XXA Strain of muscle, fascia and tendon at neck level, initial encounter (principal); X58.XXXA Exposure to other specified factors, initial encounter; Y92.9 Unspecified place or not applicable; Y93.9 Activity, unspecified; Y99.9 Unspecified external cause status; E11.9 Type 2 diabetes mellitus without complications; G89.29 Other chronic pain; M54.9 Dorsalgia, unspecified; K21.9 Gastro-esophageal reflux disease without esophagitis; F41.9 Anxiety disorder, unspecified; F33.9 Major depressive disorder, recurrent, unspecified; F17.200 Nicotine dependence, unspecified, uncomplicated; Z88.2 Allergy status to sulfonamides; Z88.1 Allergy status to other antibiotic agents; Z88.8 Allergy status to other drugs, medicaments and biological substances; Z79.899 Other long term (current) drug therapy
CPT/HCPCS: 36415; 96372; 99283; J1885

== ENCOUNTER 2020-01-16 23:20 | Emergency (ER) | payer MEDICARE, MEDICAID ==
[~2020-01-16] VITALS: Ht 162.6 cm; Wt 80.0 kg
[~2020-01-16 23:20] MED LIST changes: +CYCL7.5T32 PO; +LIDO5DIS41 TOP
[2020-01-16 23:31] VITALS: BP 142/84
[2020-01-16 23:50] LABS: HEMATOCRIT 35.2 % (36.0-47.0); HEMOGLOBIN 11.8 g/dl (12.0-15.5); MEAN CORPUSCULAR HEMOGLOBIN 31.6 pg (27.0-33.0); MEAN CORPUSCULAR HGB CONC 33.5 g/dl (32.0-36.5); MEAN CORPUSCULAR VOLUME 94.1 fl (80.0-96.0); PLATELET COUNT, AUTOMATED 201 10^3/uL (150-450); RED BLOOD COUNT 3.74 10^6/uL (4.00-5.40); WHITE BLOOD COUNT 10.8 10^3/uL (4.0-10.0)
[2020-01-17] MEDS ORDERED: ONDANSETRON 4MG/2ML VIAL IV ONE (00:15)
[2020-01-17] MEDS ORDERED: NS 1,000 ML IV ONE (00:15)
[2020-01-17 00:29] LABS: ALBUMIN 3.3 GM/DL (3.2-5.2); ALT/SGPT 109 U/L (12-78); BILIRUBIN,TOTAL 0.4 MG/DL (0.2-1.0); BLOOD UREA NITROGEN 10 MG/DL (7-18); CALCIUM LEVEL 8.2 MG/DL (8.5-10.1); CARBON DIOXIDE LEVEL 26 MEQ/L (21-32); CHLORIDE LEVEL 108 MEQ/L (98-107); GLOMERULAR FILTRATION RATE > 60.0 (>58); GLUCOSE, FASTING 176 MG/DL (70-100); POTASSIUM SERUM 3.5 MEQ/L (3.5-5.1); SODIUM LEVEL 140 MEQ/L (136-145); TOTAL PROTEIN 6.1 GM/DL (6.4-8.2)
[2020-01-17] MEDS ORDERED: PANTOPRAZOLE 40MG VIAL (C9113 PER 1) IV ONE (00:30)
== END 2020-01-17 00:59 | disposition short-term general hospital (02) ==
LOC: M ED 23:20
DX: K92.2 Gastrointestinal hemorrhage, unspecified (principal); E11.9 Type 2 diabetes mellitus without complications; E78.5 Hyperlipidemia, unspecified; R91.1 Solitary pulmonary nodule; K21.9 Gastro-esophageal reflux disease without esophagitis; F17.200 Nicotine dependence, unspecified, uncomplicated; Z88.2 Allergy status to sulfonamides; Z88.1 Allergy status to other antibiotic agents; Z88.8 Allergy status to other drugs, medicaments and biological substances; Z79.899 Other long term (current) drug therapy; Z79.4 Long term (current) use of insulin
CPT/HCPCS: 80053; 85027; 96361; 96374; 96375; 99284; C9113; J2405

== ENCOUNTER → 2020-02-11 | Outpatient (CLI) | payer MEDICARE, MEDICAID ==
--- NOTE | 2020-02-11 15:04 | REP ---
INDICATION: ABN CHEST CT COMPARISON: 07/11/2019 TECHNIQUE: Axial noncontrast images from the thoracic inlet to the upper abdomen with coronal and sagittal reformations. This CT examination was performed using the following dose reduction techniques: Automated exposure control, adjustment of mA and/or kv according to the patient's size, and use of iterative reconstruction technique. FINDINGS: The bilateral lung muniz are well aerated, relatively symmetric and essentially clear. Few scattered small calcified and noncalcified nodules up to 3 mm remains stable and consistent with chronic changes. No acute consolidation, suspicious nodule or mass lesion. No pleural effusion. No pneumothorax. Tracheobronchial tree is patent. No adenopathy. Mediastinum demonstrates normal thoracic aorta, pulmonary vasculature and heart/pericardium. Surrounding musculoskeletal structures are intact. Bilateral adrenal glands are normal. Evidence for prior gastric bypass surgery noted. IMPRESSION: 1. Few scattered stable pulmonary nodules up to 3 mm most compatible with chronic changes. Based on Fleischner society criteria, low risk patients require no further investigation, while high risk patients may warrant annual low-dose CT surveillance. 2. No acute significant mediastinal or pleuroparenchymal process appreciated. <Electronically signed by Peter Ballesteros > 02/11/20 [id number]
== END ==
LOC: M RAD 14:29
PROVIDERS: ATTEND Family Medicine
DX: R91.8 Other nonspecific abnormal finding of lung field (principal)

== ENCOUNTER → 2020-03-28 | Outpatient (REF) | payer MEDICARE, MEDICAID ==
[2020-03-28 14:14] LABS: APPEARANCE, URINE HAZY (CLEAR); BACTERIA, URINE AUTO NEGATIVE (NEGATIVE); BILIRUBIN, URINE AUTO 1+ (NEGATIVE); BLOOD, URINE BLOOD NEGATIVE (NEGATIVE); CALCIUM OXALATE CRYSTALS MODERATE; COLOR, URINE YELLOW (YELLOW); GLUCOSE, URINE (UA) AUTO NEGATIVE (NEGATIVE); KETONE, URINE AUTO 2+ mg/dL (NEGATIVE); LEUKOCYTE ESTERASE, URINE AUTO NEGATIVE (NEGATIVE); MUCUS, URINE LARGE (NEGATIVE); NITRITE, URINE AUTO NEGATIVE (NEGATIVE); PROTEIN, URINE AUTO NEGATIVE (NEGATIVE); RBC, URINE AUTO 4 /HPF (0-3); SQUAMOUS EPITHELIAL CELL UR AU 0 /HPF (0-6); WBC, URINE AUTO 3 /HPF (0-3)
[2020-03-28 14:16] LABS: BASO % 0.5 % (0.0-1.0); EOS # 0.2 10^3/uL (0.0-0.5); EOS % 2.6 % (0.0-3.0); HEMATOCRIT 42.4 % (36.0-47.0); HEMOGLOBIN 13.6 g/dl (12.0-15.5); LYMPH # 2.1 10^3/uL (1.5-5.0); LYMPH % 28.8 % (24.0-44.0); MEAN CORPUSCULAR HEMOGLOBIN 30.7 pg (27.0-33.0); MEAN CORPUSCULAR HGB CONC 32.1 g/dl (32.0-36.5); MEAN CORPUSCULAR VOLUME 95.7 fl (80.0-96.0); MONO # 0.5 10^3/uL (0.0-0.8); MONO % 6.3 % (0.0-5.0); NEUTROPHILS # 4.6 10^3/uL (1.5-8.5); NEUTROPHILS % 61.5 % (36.0-66.0); PLATELET COUNT, AUTOMATED 180 10^3/uL (150-450); RED BLOOD COUNT 4.43 10^6/uL (4.00-5.40); WHITE BLOOD COUNT 7.4 10^3/uL (4.0-10.0)
[2020-03-28 14:39] LABS: DRVV SCREEN 37.9 SEC
[2020-03-28 14:49] LABS: COMPLEMENT C3 134 MG/DL (90-180); COMPLEMENT C4 33 MG/DL (10-40)
[2020-03-28 15:01] LABS: PTT LUPUS TYPE ANTICOAG SCREEN 0.9 (0-1.2)
== END ==
LOC: M SFHCRHEU 10:19
PROVIDERS: ATTEND Internal Medicine
DX: R76.8 Other specified abnormal immunological findings in serum (principal); M79.641 Pain in right hand

== ENCOUNTER → 2020-03-28 | Outpatient (CLI) | payer MEDICARE, MEDICAID ==
[2020-03-28 12:44] LABS: ALBUMIN 4.2 GM/DL (3.2-5.2); ALT/SGPT 26 U/L (12-78); BILIRUBIN,TOTAL 0.5 MG/DL (0.2-1.0); BLOOD UREA NITROGEN 12 MG/DL (7-18); CALCIUM LEVEL 9.3 MG/DL (8.5-10.1); CARBON DIOXIDE LEVEL 29 MEQ/L (21-32); CHLORIDE LEVEL 107 MEQ/L (98-107); CHOLESTEROL LEVEL 152 MG/DL (<200); CREATININE FOR GFR 0.48 MG/DL (0.55-1.30); FERRITIN 76 NG/ML (8-252); GLOMERULAR FILTRATION RATE > 60.0 (>58); GLUCOSE, FASTING 90 MG/DL (70-100); HDL CHOLESTEROL 34 MG/DL (>40); IRON (FE) 57 UG/DL (50-170); LDL CHOLESTEROL 97 MG/DL (<100); NON-HDL-C 118 MG/DL; PERCENT SATURATION 19.5 % (13.2-45.0); POTASSIUM SERUM 3.8 MEQ/L (3.5-5.1); SODIUM LEVEL 143 MEQ/L (136-145); TOTAL IRON BINDING CAPACITY 292 UG/DL (250-450); TOTAL PROTEIN 6.7 GM/DL (6.4-8.2); TRIGLYCERIDES LEVEL 103 MG/DL (<150)
[2020-03-28 12:50] LABS: TOTAL 25(OH) VITAMIN D 33.5 NG/ML (30.0-100.0); VITAMIN B12 LEVEL 1839 PG/ML (247-911)
[2020-03-28 13:49] LABS: HEMOGLOBIN A1c 5.2 %
== END ==
LOC: M LAB 11:01
PROVIDERS: ATTEND Registered Nurse
DX: Z01.812 Encounter for preprocedural laboratory examination (principal); D51.9 Vitamin B12 deficiency anemia, unspecified; E51.9 Thiamine deficiency, unspecified; E55.9 Vitamin D deficiency, unspecified; E66.01 Morbid (severe) obesity due to excess calories; E78.5 Hyperlipidemia, unspecified; M79.641 Pain in right hand; R76.8 Other specified abnormal immunological findings in serum; Z09 Encounter for follow-up examination after completed treatment for conditions other than malignant neoplasm; Z79.899 Other long term (current) drug therapy
CPT/HCPCS: 36415; 73130; 80053; 80061; 81001; 82306; 82570; 82607; 82728; 83036; 83520; 83550; 84425; 85025; 85730; 86038; 86146; 86147; 86160; 86162; 86225; 86235; 86255; G0463

== ENCOUNTER → 2020-03-28 | Outpatient (CLI) | payer MEDICARE, MEDICAID ==
--- NOTE | 2020-03-28 11:55 | REP ---
INDICATION: PAIN IN RIGHT HAND, LABS 1ST THEN XR COMPARISON: None. TECHNIQUE: AP, lateral, bilateral oblique views right hand. FINDINGS: The osseous structures and joint spaces are intact and age-appropriate. No overt arthritic changes are appreciated. There is no evidence for acute fracture or dislocation. Surrounding soft tissues are unremarkable. No subcutaneous emphysema or radiodense foreign body. IMPRESSION: Essentially normal right hand radiograph series. <Electronically signed by Peter Ballesteros > 03/28/20 [id number]
== END ==
LOC: M RAD 11:05
PROVIDERS: ATTEND Internal Medicine
DX: M79.641 Pain in right hand (principal)

== ENCOUNTER 2021-04-01 18:15 | Emergency (ER) | payer MEDICARE, MEDICAID ==
[~2021-04-01] VITALS: Ht 157.5 cm; Wt 48.6 kg
[~2021-04-01 18:15] MED LIST changes: +ERGO500029 PO; +OMEP40CA4; -OMEP40CA97; -VITA50005 PO
[2021-04-01 18:16] VITALS: BP 135/83
== END 2021-04-01 22:00 | disposition home or self-care (01) ==
LOC: M ED 18:15
DX: S59.901A Unspecified injury of right elbow, initial encounter (principal); W01.0XXA Fall on same level from slipping, tripping and stumbling without subsequent striking against object, initial encounter; W54.8XXA Other contact with dog, initial encounter; E11.9 Type 2 diabetes mellitus without complications; K21.9 Gastro-esophageal reflux disease without esophagitis; E78.5 Hyperlipidemia, unspecified; Z88.1 Allergy status to other antibiotic agents; Z88.2 Allergy status to sulfonamides; Z88.8 Allergy status to other drugs, medicaments and biological substances; Z79.899 Other long term (current) drug therapy; Z98.84 Bariatric surgery status; Y92.009 Unspecified place in unspecified non-institutional (private) residence as the place of occurrence of the external cause; Y93.9 Activity, unspecified; Y99.9 Unspecified external cause status

== ENCOUNTER → 2021-04-02 | Outpatient (CLI) | payer MEDICARE, MEDICAID ==
[2021-04-04 05:07] LABS: HERPES ZOSTER, VARICELLA IgG 918 index (Immune >165); MUMPS VIRUS IgG ANTIBODY <9.0 AU/mL (Immune >10.9); RUBEOLA IgG ANTIBODY >300.0 AU/mL (Immune >16.4)
== END ==
LOC: M WUC 13:44
PROVIDERS: ATTEND Physician Assistant Medical
DX: Z01.84 Encounter for antibody response examination (principal)

== ENCOUNTER → 2021-04-15 | Outpatient (REF) | payer MEDICARE, MEDICAID | LOC: M LAB REF 13:03 | PROVIDERS: ATTEND Podiatrist Foot & Ankle Surgery | DX: D23.72 Other benign neoplasm of skin of left lower limb, including hip (principal) ==

== ENCOUNTER → 2021-08-25 | Outpatient (CLI) | payer MEDICARE, MEDICAID | LOC: M PLAIMG 08:51 | PROVIDERS: ATTEND Family Medicine | DX: R91.8 Other nonspecific abnormal finding of lung field (principal) ==

== ENCOUNTER → 2021-09-15 | Outpatient (CLI) | payer MEDICARE, MEDICAID ==
[2021-09-15 13:05] LABS: BASO % 0.7 % (0.0-1.0); EOS # 0.2 10^3/uL (0.0-0.5); EOS % 3.9 % (0.0-3.0); HEMATOCRIT 43.1 % (36.0-47.0); LYMPH # 2.2 10^3/uL (1.5-5.0); LYMPH % 41.5 % (24.0-44.0); MEAN CORPUSCULAR HEMOGLOBIN 30.8 pg (27.0-33.0); MEAN CORPUSCULAR HGB CONC 32.5 g/dl (32.0-36.5); MEAN CORPUSCULAR VOLUME 94.7 fl (80.0-96.0); MONO # 0.4 10^3/uL (0.0-0.8); NEUTROPHILS # 2.5 10^3/uL (1.5-8.5); NEUTROPHILS % 45.7 % (36.0-66.0); PLATELET COUNT, AUTOMATED 171 10^3/uL (150-450); RED BLOOD COUNT 4.55 10^6/uL (4.00-5.40); WHITE BLOOD COUNT 5.4 10^3/uL (4.0-10.0)
[2021-09-15 13:15] LABS: HEMOGLOBIN A1c 5.4 %
[2021-09-15 13:31] LABS: ALBUMIN 3.8 GM/DL (3.2-5.2); ALT/SGPT 57 U/L (12-78); BILIRUBIN,TOTAL 0.5 MG/DL (0.2-1.0); BLOOD UREA NITROGEN 10 MG/DL (7-18); CALCIUM LEVEL 9.6 MG/DL (8.5-10.1); CARBON DIOXIDE LEVEL 32 MEQ/L (21-32); CHLORIDE LEVEL 108 MEQ/L (98-107); CHOLESTEROL LEVEL 194 MG/DL (<200); CHOLESTEROL RISK RATIO 3.803 (<5); CREATININE FOR GFR 0.59 MG/DL (0.55-1.30); FREE T4 0.89 NG/DL (0.76-1.46); GLOMERULAR FILTRATION RATE > 60.0 (>58); GLUCOSE, FASTING 89 MG/DL (70-100); HDL CHOLESTEROL 51 MG/DL (>40); LDL CHOLESTEROL 112 MG/DL (<100); NON-HDL-C 143 MG/DL; POTASSIUM SERUM 4.4 MEQ/L (3.5-5.1); SODIUM LEVEL 142 MEQ/L (136-145); TOTAL PROTEIN 6.6 GM/DL (6.4-8.2); TRIGLYCERIDES LEVEL 155 MG/DL (<150)
[2021-09-15 13:40] LABS: TOTAL 25(OH) VITAMIN D 30.2 NG/ML (30.0-100.0); VITAMIN B12 LEVEL 720 PG/ML
== END ==
LOC: M WUC 09:49
PROVIDERS: ATTEND Physician Assistant
DX: E78.00 Pure hypercholesterolemia, unspecified (principal); E11.9 Type 2 diabetes mellitus without complications; K21.9 Gastro-esophageal reflux disease without esophagitis; E55.9 Vitamin D deficiency, unspecified; Z98.84 Bariatric surgery status; Z79.899 Other long term (current) drug therapy

== ENCOUNTER 2021-12-23 12:47 | Emergency (ER) | payer MEDICARE, MEDICAID ==
[~2021-12-23] VITALS: Ht 157.5 cm; Wt 57.4 kg
[2021-12-23] MEDS ORDERED: KETOROLAC 30 MG/ML 1ML VIAL IM ONE (14:20)
[2021-12-23] MEDS ORDERED: LIDOCAINE 5% (LIDODERM) PATCH TD ONE (14:20)
[2021-12-23] MEDS ORDERED: LIDO5DIS41 TOP (16:28)
[2021-12-23] MEDS ORDERED: CYCL5TAB PO (16:28)
[2021-12-23 16:35] VITALS: BP 108/73
[2021-12-23] MEDS ORDERED: **NOTE PATIENT COMMENT** MISC XX SCH (21:00)
== END 2021-12-23 16:41 | disposition home or self-care (01) ==
LOC: M ED 12:47
DX: M54.31 Sciatica, right side (principal); M54.17 Radiculopathy, lumbosacral region; E11.9 Type 2 diabetes mellitus without complications; K21.9 Gastro-esophageal reflux disease without esophagitis; E78.5 Hyperlipidemia, unspecified; F41.9 Anxiety disorder, unspecified; F17.200 Nicotine dependence, unspecified, uncomplicated; Z88.1 Allergy status to other antibiotic agents; Z88.2 Allergy status to sulfonamides; Z88.8 Allergy status to other drugs, medicaments and biological substances
CPT/HCPCS: 72131; 96372; 99283; J1885

== ENCOUNTER → 2021-12-28 | Outpatient (CLI) | payer MEDICARE, MEDICAID ==
[~2021-12-28] MED LIST changes: +CYCL5TAB PO
[2021-12-28 14:41] LABS: BASO # 0.1 10^3/uL (0.0-0.2); BASO % 0.9 % (0.0-1.0); EOS # 0.2 10^3/uL (0.0-0.5); EOS % 2.6 % (0.0-3.0); HEMATOCRIT 41.1 % (36.0-47.0); HEMOGLOBIN 13.7 g/dl (12.0-15.5); LYMPH # 2.3 10^3/uL (1.5-5.0); LYMPH % 35.1 % (24.0-44.0); MEAN CORPUSCULAR HEMOGLOBIN 30.2 pg (27.0-33.0); MEAN CORPUSCULAR HGB CONC 33.3 g/dl (32.0-36.5); MEAN CORPUSCULAR VOLUME 90.5 fl (80.0-96.0); MONO # 0.4 10^3/uL (0.0-0.8); MONO % 6.5 % (2.0-8.0); NEUTROPHILS # 3.5 10^3/uL (1.5-8.5); NEUTROPHILS % 54.6 % (36.0-66.0); PLATELET COUNT, AUTOMATED 222 10^3/uL (150-450); RED BLOOD COUNT 4.54 10^6/uL (4.00-5.40); WHITE BLOOD COUNT 6.5 10^3/uL (4.0-10.0)
[2021-12-28 15:16] LABS: ERYTHROCYTE SEDIMENTATION RATE 8 mm/hr (0-20)
[2021-12-28 15:45] LABS: ALBUMIN 3.8 GM/DL (3.2-5.2); ALT/SGPT 52 U/L (12-78); BILIRUBIN,TOTAL 0.3 MG/DL (0.2-1.0); BLOOD UREA NITROGEN 11 MG/DL (7-18); CALCIUM LEVEL 9.5 MG/DL (8.5-10.1); CARBON DIOXIDE LEVEL 33 MEQ/L (21-32); CHLORIDE LEVEL 106 MEQ/L (98-107); GLOMERULAR FILTRATION RATE > 60.0 (>58); GLUCOSE, FASTING 93 MG/DL (70-100); POTASSIUM SERUM 4.4 MEQ/L (3.5-5.1); SODIUM LEVEL 140 MEQ/L (136-145); TOTAL PROTEIN 6.9 GM/DL (6.4-8.2)
== END ==
LOC: M LAB 13:55
PROVIDERS: ATTEND Orthopaedic Surgery
DX: M54.50 Low back pain, unspecified (principal)

== ENCOUNTER → 2022-01-08 | Outpatient (CLI) | payer MEDICARE, MEDICAID | LOC: M PLARAD 08:20 | PROVIDERS: ATTEND Orthopaedic Surgery | DX: M54.50 Low back pain, unspecified (principal) ==

== ENCOUNTER 2022-03-06 09:52 | Emergency (ER) | payer MEDICARE, MEDICAID ==
[~2022-03-06] VITALS: Ht 157.5 cm; Wt 59.7 kg
[2022-03-06 13:01] VITALS: BP 117/79
== END 2022-03-06 13:03 | disposition home or self-care (01) ==
LOC: M ED 09:52
DX: S46.011A Strain of muscle(s) and tendon(s) of the rotator cuff of right shoulder, initial encounter (principal); E11.9 Type 2 diabetes mellitus without complications; F41.9 Anxiety disorder, unspecified; E78.5 Hyperlipidemia, unspecified; K21.9 Gastro-esophageal reflux disease without esophagitis; M54.50 Low back pain, unspecified; F17.200 Nicotine dependence, unspecified, uncomplicated; Z98.84 Bariatric surgery status; Z88.2 Allergy status to sulfonamides; Z88.6 Allergy status to analgesic agent; Z88.8 Allergy status to other drugs, medicaments and biological substances; Z79.899 Other long term (current) drug therapy; Z79.02 Long term (current) use of antithrombotics/antiplatelets

== ENCOUNTER → 2022-06-15 | Outpatient (CLI) | payer MEDICARE, MEDICAID ==
[~2022-06-15] MED LIST changes: -FLUO10TA2; +FLUO1TAB
== END ==
LOC: M WUC 10:13
PROVIDERS: ATTEND Student in an Organized Health Care Education/Training Program
DX: E16.2 Hypoglycemia, unspecified (principal)

== ENCOUNTER 2022-12-17 11:38 | Emergency (ER) | payer MEDICAID, MEDICARE ==
[~2022-12-17] VITALS: Ht 160 cm; Wt 64.5 kg
[~2022-12-17 11:38] MED LIST changes: -HOLTER MONITOR XX
[2022-12-17 11:52] VITALS: TEMP 98.1
[2022-12-17 12:29] LABS: BASO % 0.5 % (0.0-1.0); EOS # 0.2 10^3/uL (0.0-0.5); EOS % 2.8 % (0.0-3.0); HEMOGLOBIN 13.4 g/dl (12.0-15.5); LYMPH # 1.9 10^3/uL (1.5-5.0); LYMPH % 32.8 % (24.0-44.0); MEAN CORPUSCULAR HGB CONC 34.4 g/dl (32.0-36.5); MEAN CORPUSCULAR VOLUME 90.3 fl (80.0-96.0); MONO # 0.4 10^3/uL (0.0-0.8); MONO % 7.1 % (2.0-8.0); NEUTROPHILS # 3.3 10^3/uL (1.5-8.5); NEUTROPHILS % 56.5 % (36.0-66.0); PLATELET COUNT, AUTOMATED 174 10^3/uL (150-450); RED BLOOD COUNT 4.32 10^6/uL (4.00-5.40); WHITE BLOOD COUNT 5.8 10^3/uL (4.0-10.0)
[2022-12-17 12:41] LABS: INR 1.04; PROTHROMBIN TIME 13.3 SECONDS (12.5-14.5)
[2022-12-17 12:53] LABS: CK-MB VALUE MASS < 1.0 NG/ML (<3.6); LIPASE 35 U/L (12-53)
[2022-12-17 12:55] LABS: HCG, SERUM QUALITATIVE NEGATIVE (NEGATIVE)
[2022-12-17 12:56] LABS: ALBUMIN 3.7 G/DL (3.2-5.2); ALKALINE PHOSPHATASE 95 U/L (46-116); ALT/SGPT 28 U/L (7.0-40); AST/SGOT 23 U/L (<34); BILIRUBIN,DIRECT 0.2 MG/DL (<0.4); BILIRUBIN,TOTAL 0.7 MG/DL (0.3-1.2); BLOOD UREA NITROGEN 11 MG/DL (9-23); CALCIUM LEVEL 8.9 MG/DL (8.5-10.1); CARBON DIOXIDE LEVEL 29 MMOL/L (20-31); CHLORIDE LEVEL 110 MMOL/L (98-107); CREATININE FOR GFR 0.53 MG/DL (0.55-1.30); GLOMERULAR FILTRATION RATE > 60.0 (>58); GLUCOSE, FASTING 90 MG/DL (60-100); MAGNESIUM LEVEL 2.1 MG/DL (1.8-2.4); SODIUM LEVEL 143 MMOL/L (136-145); TOTAL PROTEIN 6.5 G/DL (5.7-8.2)
[2022-12-17 12:58] LABS: THYROID STIMULATING HORMONE 1.493 uIU/ML (0.55-4.78)
[2022-12-17 12:59] LABS: CPK CREATINE PHOSPHOKINASE 38 U/L (34-145); MB/CK RELATIVE INDEX 2.63 (< OR =4)
[2022-12-17 15:15] VITALS: BP 126/76
[2022-12-17] MEDS ORDERED: HOLTER MONITOR XX (15:22)
[2022-12-17 15:23] VITALS: O2SAT 98
== END 2022-12-17 15:37 | disposition home or self-care (01) ==
LOC: M ED 13:03
DX: R42 Dizziness and giddiness (principal); R00.2 Palpitations; E11.9 Type 2 diabetes mellitus without complications; F17.200 Nicotine dependence, unspecified, uncomplicated; Z88.1 Allergy status to other antibiotic agents; Z88.2 Allergy status to sulfonamides; Z88.6 Allergy status to analgesic agent; Z88.8 Allergy status to other drugs, medicaments and biological substances; Z79.83 Long term (current) use of bisphosphonates; Z79.899 Other long term (current) drug therapy
CPT/HCPCS: 36415; 70450; 71045; 80048; 80076; 82550; 82553; 83690; 83735; 84443; 84484; 84703; 85025; 85610; 93005; 93041; 93242; 94760; 99285; G0463

== ENCOUNTER → 2022-12-17 | Outpatient (CLI) | payer MEDICARE, MEDICAID ==
[~2022-12-17] MED LIST changes: +DICL100G10 TOP; -DICL1GEL3 TOP; +FLUT50SP17; -FLUTISP; +HOLTER MONITOR XX
== END ==
LOC: M EKG 15:42
PROVIDERS: ATTEND Physician Assistant Medical
DX: R00.2 Palpitations (principal)

== ENCOUNTER → 2023-03-22 | Outpatient (CLI) | payer MEDICARE, MEDICAID ==
[~2023-03-22] MED LIST changes: -FLUT50SP17; +FLUTISP; +HOLTER MONITOR XX
== END ==
LOC: M WUC 11:39
PROVIDERS: ATTEND Physician Assistant
DX: T14.8XXA Other injury of unspecified body region, initial encounter (principal); Y92.9 Unspecified place or not applicable

== ENCOUNTER → 2023-05-27 | Outpatient (CLI) | payer MEDICARE, MEDICAID ==
[2023-05-27 11:45] LABS: CORTISOL AM 8.8 UG/DL (4.3-22.4)
[2023-05-27 11:46] LABS: BLOOD UREA NITROGEN 12 MG/DL (9-23); CALCIUM LEVEL 8.4 MG/DL (8.5-10.1); CARBON DIOXIDE LEVEL 32 MMOL/L (20-31); CHLORIDE LEVEL 107 MMOL/L (98-107); CREATININE FOR GFR 0.54 MG/DL (0.55-1.30); GLOMERULAR FILTRATION RATE > 60.0 (>58); GLUCOSE, FASTING 92 MG/DL (60-100); POTASSIUM SERUM 3.7 MMOL/L (3.5-5.1); SODIUM LEVEL 141 MMOL/L (136-145)
== END ==
LOC: M WUC 08:43
PROVIDERS: ATTEND Family Medicine
DX: E16.1 Other hypoglycemia (principal)

== ENCOUNTER → 2023-06-10 | Outpatient (CLI) | payer MEDICARE, MEDICAID | LOC: M SOG 07:52 | PROVIDERS: ATTEND Physician Assistant | DX: M79.602 Pain in left arm (principal) ==

== ENCOUNTER → 2023-08-31 | Outpatient (CLI) | payer MEDICARE, OTHER | LOC: M PLAIMG 10:07 | PROVIDERS: ATTEND Orthopaedic Surgery | DX: M54.2 Cervicalgia (principal); M25.78 Osteophyte, vertebrae ==

== ENCOUNTER → 2024-05-15 | Outpatient (CLI) | payer MEDICARE, OTHER ==
[~2024-05-15] MED LIST changes: -CYCL5TAB PO; +CYCL5TAB4 PO
== END ==
LOC: M WUC 11:31
PROVIDERS: ATTEND Physician Assistant
DX: M25.472 Effusion, left ankle (principal)

== ENCOUNTER → 2024-05-15 | Outpatient (REF) | payer MEDICARE, OTHER ==
[~2024-05-15] MED LIST changes: -OMEP40CA4; +OMEP40CA4 PO
[2024-05-15 14:24] LABS: HEMOGLOBIN A1c 5.2 % (4.0-6.0)
[2024-05-15 14:40] LABS: ALBUMIN 3.8 G/DL (3.2-5.2); ALKALINE PHOSPHATASE 75 U/L (35-104); ALT/SGPT 23 U/L (7.0-40); AST/SGOT 14 U/L (<34); BILIRUBIN,TOTAL 0.4 MG/DL (0.3-1.2); BLOOD UREA NITROGEN 12 MG/DL (9-23); CALCIUM LEVEL 9.3 MG/DL (8.5-10.1); CARBON DIOXIDE LEVEL 29 MMOL/L (20-31); CHLORIDE LEVEL 106 MMOL/L (98-107); CHOLESTEROL LEVEL 225 MG/DL (<200); CHOLESTEROL RISK RATIO 3.68 (<5); CREATININE FOR GFR 0.53 MG/DL (0.55-1.30); GLOMERULAR FILTRATION RATE > 60.0 (>58); GLUCOSE, FASTING 108 MG/DL (60-100); HDL CHOLESTEROL 61.1 MG/DL (>40); LDL CHOLESTEROL 136.9 MG/DL (<100); NON-HDL-C 163.9 MG/DL; POTASSIUM SERUM 4.7 MMOL/L (3.5-5.1); SODIUM LEVEL 145 MMOL/L (136-145); TRIGLYCERIDES LEVEL 135 MG/DL (<150)
[2024-05-15 14:41] LABS: THYROID STIMULATING HORMONE 1.665 uIU/ML (0.55-4.78)
[2024-05-15 14:42] LABS: TOTAL 25(OH) VITAMIN D 24.9 NG/ML (20.0-100.0)
[2024-05-15 14:51] LABS: URIC ACID 4.2 MG/DL (3.1-7.8)
[2024-05-15 15:05] LABS: HIV 1&2 SCREEN NEGATIVE (NEGATIVE)
[2024-05-15 15:13] LABS: HEPATITIS C VIRUS ABY INDEX 0.14 INDEX (<0.8)
== END ==
LOC: M LAB REF 12:54
PROVIDERS: ATTEND Physician Assistant
DX: Z11.9 Encounter for screening for infectious and parasitic diseases, unspecified (principal); E66.9 Obesity, unspecified; E55.9 Vitamin D deficiency, unspecified; M25.472 Effusion, left ankle; Z79.899 Other long term (current) drug therapy

== ENCOUNTER 2024-05-18 09:24 | Emergency (ER) | payer MEDICARE, OTHER ==
[~2024-05-18] VITALS: Ht 162.6 cm; Wt 62.5 kg
[2024-05-18 12:28] VITALS: BP 134/90; TEMP 96.6; O2SAT 98
[2024-05-18 13:08] LABS: BASO % 0.7 % (0.0-1.0); EOS # 0.2 10^3/uL (0.0-0.5); EOS % 3.2 % (0.0-3.0); HEMATOCRIT 41.2 % (36.0-47.0); HEMOGLOBIN 13.7 g/dl (12.0-15.5); LYMPH # 1.5 10^3/uL (1.5-5.0); LYMPH % 26.2 % (24.0-44.0); MEAN CORPUSCULAR HEMOGLOBIN 30.6 pg (27.0-33.0); MEAN CORPUSCULAR HGB CONC 33.3 g/dl (32.0-36.5); MEAN CORPUSCULAR VOLUME 92.2 fl (80.0-96.0); MONO # 0.5 10^3/uL (0.0-0.8); MONO % 8.4 % (2.0-8.0); NEUTROPHILS # 3.4 10^3/uL (1.5-8.5); NEUTROPHILS % 61.1 % (36.0-66.0); PLATELET COUNT, AUTOMATED 200 10^3/uL (150-450); RED BLOOD COUNT 4.47 10^6/uL (4.00-5.40); WHITE BLOOD COUNT 5.6 10^3/uL (4.0-10.0)
[2024-05-18] MEDS: KETOROLAC 60MG 2ML VIAL IM ONE (13:11)
[2024-05-18 13:13] LABS: ERYTHROCYTE SEDIMENTATION RATE 16 mm/hr (0-20)
[2024-05-18 13:32] LABS: URIC ACID 4.6 MG/DL (3.1-7.8)
[2024-05-18 13:35] LABS: ALBUMIN 3.9 G/DL (3.2-5.2); ALKALINE PHOSPHATASE 80 U/L (35-104); ALT/SGPT 24 U/L (7.0-40); AST/SGOT 13 U/L (<34); BILIRUBIN,DIRECT 0.1 MG/DL (<0.4); BILIRUBIN,TOTAL 0.5 MG/DL (0.3-1.2); BLOOD UREA NITROGEN 12 MG/DL (9-23); C REACTIVE PROTEIN QUANTITATIV < 0.50 MG/DL (<1.0); CALCIUM LEVEL 9.5 MG/DL (8.5-10.1); CARBON DIOXIDE LEVEL 29 MMOL/L (20-31); CHLORIDE LEVEL 106 MMOL/L (98-107); CREATININE FOR GFR 0.49 MG/DL (0.55-1.30); GLOMERULAR FILTRATION RATE > 60.0 (>58); GLUCOSE, FASTING 106 MG/DL (60-100); POTASSIUM SERUM 4.3 MMOL/L (3.5-5.1); SODIUM LEVEL 142 MMOL/L (136-145)
[2024-05-18 13:46] LABS: PROCALCITONIN <0.04 ng/ml
[2024-05-18] MEDS ORDERED: HOME MED LIST COMPLETE! XX SCH (13:50)
== END 2024-05-18 14:53 | disposition home or self-care (01) ==
LOC: M ED 09:24
DX: S93.492A Sprain of other ligament of left ankle, initial encounter (principal); S96.912A Strain of unspecified muscle and tendon at ankle and foot level, left foot, initial encounter; X50.0XXA Overexertion from strenuous movement or load, initial encounter; E11.9 Type 2 diabetes mellitus without complications; F10.10 Alcohol abuse, uncomplicated; F17.200 Nicotine dependence, unspecified, uncomplicated; Y92.009 Unspecified place in unspecified non-institutional (private) residence as the place of occurrence of the external cause; Y93.89 Activity, other specified; Y99.9 Unspecified external cause status; Z88.2 Allergy status to sulfonamides; Z88.1 Allergy status to other antibiotic agents; Z88.8 Allergy status to other drugs, medicaments and biological substances; Z79.899 Other long term (current) drug therapy
CPT/HCPCS: 80048; 80076; 83605; 84145; 84550; 85025; 85652; 86140; 96372; 99283; J1885

== ENCOUNTER → 2024-06-07 | Outpatient (REF) | payer MEDICARE ==
[2024-06-07 14:14] LABS: BASO % 0.3 % (0.0-1.0); EOS # 0.1 10^3/uL (0.0-0.5); EOS % 0.8 % (0.0-3.0); HEMATOCRIT 38.5 % (36.0-47.0); HEMOGLOBIN 12.7 g/dl (12.0-15.5); LYMPH # 1.8 10^3/uL (1.5-5.0); LYMPH % 18.6 % (24.0-44.0); MEAN CORPUSCULAR VOLUME 93.9 fl (80.0-96.0); MONO # 0.7 10^3/uL (0.0-0.8); MONO % 7.2 % (2.0-8.0); NEUTROPHILS # 7.1 10^3/uL (1.5-8.5); NEUTROPHILS % 72.6 % (36.0-66.0); PLATELET COUNT, AUTOMATED 239 10^3/uL (150-450); WHITE BLOOD COUNT 9.8 10^3/uL (4.0-10.0)
[2024-06-07 14:18] LABS: ALBUMIN 3.9 G/DL (3.2-5.2); ALKALINE PHOSPHATASE 86 U/L (35-104); ALT/SGPT 29 U/L (7.0-40); AST/SGOT 13 U/L (<34); BILIRUBIN,TOTAL 0.4 MG/DL (0.3-1.2); BLOOD UREA NITROGEN 13 MG/DL (9-23); C REACTIVE PROTEIN QUANTITATIV < 0.50 MG/DL (<1.0); CALCIUM LEVEL 9.6 MG/DL (8.5-10.1); CARBON DIOXIDE LEVEL 30 MMOL/L (20-31); CHLORIDE LEVEL 107 MMOL/L (98-107); CREATININE FOR GFR 0.52 MG/DL (0.55-1.30); GLOMERULAR FILTRATION RATE > 60.0 (>58); GLUCOSE, FASTING 92 MG/DL (60-100); POTASSIUM SERUM 4.2 MMOL/L (3.5-5.1); SODIUM LEVEL 147 MMOL/L (136-145); TOTAL PROTEIN 7.2 G/DL (5.7-8.2)
[2024-06-07 14:19] LABS: RHEUMATOID FACTOR QUANT 6.2 IU/ML (<14)
[2024-06-07 14:21] LABS: ERYTHROCYTE SEDIMENTATION RATE 9 mm/hr (0-20)
[2024-06-08 15:48] LABS: ANA SCREEN, IFA NEGATIVE (NEGATIVE)
[2024-06-08 18:23] LABS: SSA SJOGRENS A <1.0 NEG AI (<1.0 NEG); SSB SJOGRENS B <1.0 NEG AI (<1.0 NEG)
== END ==
LOC: M LAB REF 11:51
PROVIDERS: ATTEND Physician Assistant
DX: M06.9 Rheumatoid arthritis, unspecified (principal)

== ENCOUNTER → 2024-08-09 | Outpatient (CLI) | payer MEDICARE ==
[~2024-08-09] MED LIST changes: +LIDO1ADH93 TOP; -LIDO5DIS41 TOP
== END ==
LOC: M PLAIMG 10:17
PROVIDERS: ATTEND Physician Assistant
DX: I47.10 Supraventricular tachycardia, unspecified (principal); I36.1 Nonrheumatic tricuspid (valve) insufficiency

== ENCOUNTER 2024-11-28 10:48 | Day surgery (SDC) | payer MEDICARE ==
[~2024-11-28] VITALS: Ht 160 cm; Wt 61.2 kg
[~2024-11-28 10:48] MED LIST changes: +ATOR1TAB21 PO; +CLOB0.057 TOP
[2024-11-28] MEDS ORDERED: LIDOCAINE 2% 100 MG/5 ML SDV (FOR ANES.) As Ordered ONE (10:58)
[2024-11-28] MEDS ORDERED: MIDAZOLAM INJ 2 MG/2 ML VIAL As Ordered ONE (10:59)
[2024-11-28] MEDS: LR 1,000 ML IV SCH (11:00)
[2024-11-28] MEDS ORDERED: SCOPOLAMINE 1MG TRANSDERMAL PATCH TOP ONE (13:15)
[2024-11-28] MEDS: ceFAZolin SOD 2 GM IV ONCE IV ONE (13:25)
[2024-11-28] MEDS: LIDOCAINE 1% MDV 20 ML VIAL As Ordered ONE (13:33)
[2024-11-28] MEDS ORDERED: KETOROLAC 30 MG/ML 1 ML VIAL As Ordered ONE (13:45)
[2024-11-28] MEDS ORDERED: dexAMETHasone 4 MG/ML 1 ML VIAL As Ordered ONE (13:45)
[2024-11-28] MEDS ORDERED: ONDANSETRON 4MG 2ML VIAL As Ordered ONE (13:45)
[2024-11-28] MEDS ORDERED: ACETAMINOPHEN 1000MG/100ML IV BAG As Ordered ONE (13:47)
[2024-11-28] MEDS ORDERED: MORPHINE 2 MG/ML 1 ML VIAL IV PRN (14:10)
[2024-11-28] MEDS ORDERED: ONDANSETRON 4MG 2ML VIAL IV PRN (14:10)
[2024-11-28 14:20] VITALS: BP 128/69; TEMP 97.3; O2SAT 98
[2024-11-28] MEDS ORDERED: MORPHINE 4 MG/ML 1 ML VIAL IV PRN (14:30)
== END 2024-11-28 14:28 | disposition home or self-care (01) ==
LOC: M SDC 10:48
PROVIDERS: ATTEND Podiatrist Foot & Ankle Surgery
DX: M20.5X2 Other deformities of toe(s) (acquired), left foot (principal); F17.290 Nicotine dependence, other tobacco product, uncomplicated; K21.9 Gastro-esophageal reflux disease without esophagitis; Z79.899 Other long term (current) drug therapy; Z98.84 Bariatric surgery status; Z88.8 Allergy status to other drugs, medicaments and biological substances; Z88.1 Allergy status to other antibiotic agents; Z88.2 Allergy status to sulfonamides; Z90.710 Acquired absence of both cervix and uterus
CPT/HCPCS: 28112; 88300; J0131; J0665; J0690; J1100; J2250; J2405; J3010